=== PATIENT | female | born 1945 | race American Indian/Alaskan Native ===

== ENCOUNTER 2016-04-21 16:54 | Emergency (ER) | payer MEDICARE ==
--- NOTE | 2016-04-21 18:18 | Emergency Department Report ---
HPI - General Chief Complaint: Dizziness Time Seen by Provider: 04/21/16 17:58 - HPI HPI: Room 26 The patient is a 71-year-old female presenting with a chief complaint of weakness. The patient states when she awakened this morning at approximately 10 :00 she felt dizzy. The patient states she "wasn't feeling good." The patient is unable to describe exactly how she was feeling well and that she did not feel well. Patient denied chest pain, shortness of breath, diarrhea, abdominal pain or palpitations at any time. At 15:00 the patient decided to take a shower see if she would feel better and after she got out she felt weak all over and felt as though she was going to pass out but never lost consciousness. Patient does admit to slight headache and some nausea but denied vomiting. ED Past Medical Hx - Past Medical History Hx Hypertension: Yes Hx CVA: Yes (1997 no residual) Hx Diabetes: Yes Hx GERD: Yes Hx Renal Disease: Yes (CKD - no dialysis) Hx Arthritis: Yes Additional medical history: high cholesterol - Surgical History Hx Coronary Stent: Yes () Hx Cholecystectomy: Yes Additional Surgical History: ovary removed - Family History Family history: no significant - Social History Smoking Status: Former Smoker Substance Use Type: None - Medications Home Medications: Home Medications Medication Instructions Recorded Confirmed Last Taken Type Aspirin [Aspirin BABY CHEW TAB] 1 tab PO DAILY 01/09/13 12/22/13 09/23/13 History Clopidogrel Bisulfate [Plavix] 75 mg PO DAILY 01/09/13 12/22/13 12/14/13 History Enalapril Maleate [Vasotec] 20 mg PO DAILY 01/09/13 12/22/13 12/21/13 History Hydrochlorothiazide [HCTZ] 25 mg PO DAILY 01/09/13 12/22/13 12/21/13 History Insulin Aspart Prot/Aspart 40 units SC DAILY 01/09/13 12/22/13 12/21/13 History [NovoLOG Mix 70/30 VIAL] NIFEdipine [NIFEdipine ER] 90 mg PO QDAY 01/09/13 12/22/13 12/21/13 History Pantoprazole [Protonix TAB] 40 mg PO QDAY 01/09/13 12/22/13 12/21/13 History Insulin Aspart Prot/Aspart 20 units SC QHS 12/21/13 12/22/13 12/21/13 History [NovoLOG Mix 70/30 VIAL] Meclizine [Antivert] 25 mg PO TID PRN #20 tablet 04/21/16 Unknown Rx ED Review of Systems ROS: Stated complaint: DIZZINESS Other details as noted in HPI Comment: All other systems reviewed and negative Constitutional: weakness Eyes: denies: eye pain, eye discharge, vision change ENT: denies: ear pain, throat pain Respiratory: denies: cough, shortness of breath, wheezing Cardiovascular: denies: chest pain, palpitations Gastrointestinal: nausea. denies: vomiting Genitourinary: denies: urgency, dysuria, discharge Musculoskeletal: denies: back pain, joint swelling, arthralgia Skin: denies: rash, lesions Neurological: denies: headache Psychiatric: denies: anxiety, depression Hematological/Lymphatic: denies: easy bleeding, easy bruising Physical Exam - Physical Exam Vital Signs: Vital Signs 04/21/16 17:25 Temperature 98.7 F Pulse Rate 68 Respiratory 18 Rate Blood Pressure 152/73 O2 Sat by Pulse 98 Oximetry Physical Exam: GENERAL: The patient is well-developed well-nourished female lying on stretcher not appearing to be in acute distress. [] HEENT: Normocephalic. Atraumatic. Extraocular motions are intact. Patient has moist mucous membranes. No nystagmus NECK: Supple. Trachea midline CHEST/LUNGS: Clear to auscultation. There is no respiratory distress noted. HEART/CARDIOVASCULAR: Regular. There is no tachycardia. There is no gallop rub or murmur. ABDOMEN: Abdomen is soft, nontender. Patient has normal bowel sounds. There is no abdominal distention. SKIN: There is no rash. There is no edema. There is no diaphoresis. NEURO: The patient is awake, alert, and oriented. The patient is cooperative. The patient has no focal neurologic deficits. The patient has normal speech. Cranial nerves II through XII grossly intact, no drift MUSCULOSKELETAL: There is no evidence of acute injury. ED Course Vital Signs 04/21/16 17:25 Temperature 98.7 F Pulse Rate 68 Respiratory 18 Rate Blood Pressure 152/73 O2 Sat by Pulse 98 Oximetry - Reevaluation(s) Reevaluation #1: 04/21/16 19:43 She states she remains asymptomatic. Patient offered admission to the hospital for observation but she states she wants to go home. Patient given strong warnings to return to the ED should her symptoms come back. Patient and family verbalized understanding. Patient admonished to follow up with her primary physician ED Medical Decision Making - Lab Data Result diagrams: 04/21/16 18:13 04/21/16 18:13 Laboratory Tests 04/21/16 04/21/16 04/21/16 18:13 18:13 18:13 WBC 9.4 RBC 4.38 Hgb 12.3 Hct 38.3 MCV 87 MCH 28 MCHC 32 RDW 14.5 Plt Count 294 Lymph % (Auto) 16.4 Fisher % (Auto) 5.7 Eos % (Auto) 2.0 Baso % (Auto) 0.6 Lymph # 1.5 Fisher # 0.5 Eos # 0.2 Baso # 0.1 Seg Neutrophils % 75.3 H Seg Neutrophils # 7.1 Sodium 143 Potassium 3.6 Chloride 101.5 Carbon Dioxide 26 Anion Gap 19 BUN 21 H Creatinine 1.7 H Estimated GFR 36 BUN/Creatinine Ratio 12.35 Glucose 214 H Calcium 9.6 Total Creatine Kinase 44 CK-MB (CK-2) < 1.0 CK-MB (CK-2) Rel Index 2.2 Troponin T < 0.010 - EKG Data -: EKG Interpreted by [facility] EKG shows normal: sinus rhythm Rate: normal - EKG Data When compared to previous EKG there are: no significant change Interpretation: unchanged when compared t (11/29/2015), nonspecific ST-T wave won - Radiology Data Radiology results: report reviewed (CT head), image reviewed (CT head) CT head (read by radiologist)-no acute intracranial process noted. - Differential Diagnosis symptomatic anemia, electrolyte imbalance, acute renal failure, ICH, CVA Critical care attestation.: If time is entered above; I have spent that time in minutes in the direct care of this critically ill patient, excluding procedure time. ED Disposition Clinical Impression: Dizziness Disposition: DISCHARGED TO HOME OR SELFCARE Is pt being admited?: No Does the pt Need Aspirin: No Condition: Stable Instructions: Dizziness (ED) Additional Instructions: Return to the emergency department immediately should you develop worsening symptoms, fever, inability to tolerate food or liquid or any other concerns. Prescriptions: Meclizine [Antivert] 25 mg PO TID PRN #20 tablet PRN Reason: Vertigo Referrals: PRIMARY CARE, [Primary Care Provider] - [facility] Time of Disposition: 19:42
[2016-04-21 18:46] LABS: BUN/Creatinine Ratio 12.35; Blood Urea Nitrogen 21 mg/dL (7-17); Calcium 9.6 mg/dL (8.4-10.2); Carbon Dioxide 26 mmol/L (22-30); Chloride 101.5 mmol/L (98-107); Glucose 214 mg/dL (65-100); Potassium 3.6 mmol/L (3.6-5.0); Sodium 143 mmol/L (137-145)
[2016-04-21 18:47] LABS: Basophils % (Auto) 0.6 % (0.0-1.8); Hematocrit 38.3 % (30.3-42.9); Hemoglobin 12.3 gm/dl (10.1-14.3); Mean Corpuscular HGB Conc 32 % (30-34); Mean Corpuscular Hemoglobin 28 pg (28-32); Mean Corpuscular Volume 87 fl (79-97); Platelet Count 294 K/mm3 (140-440); Red Blood Count 4.38 M/mm3 (3.65-5.03); Red Cell Distribution Width 14.5 % (13.2-15.2); White Blood Count 9.4 K/mm3 (4.5-11.0)
--- NOTE | 2016-04-21 18:49 | Cat Scan Report ---
FINAL REPORT EXAM: CT HEAD/BRAIN WO CON HISTORY: dizziness TECHNIQUE: Standard unenhanced CT of the head at 5.0 millimeter axial increments PRIORS: Head is FINDINGS: The ventricular system is normal in size and configuration. There is no evidence for parenchymal volume loss. Low-density in the periventricular white matter bilaterally is consistent with small vessel ischemic changes. There is a small partially calcified ovoid density measuring 6.7 x 9.7 mm along the anterior cerebral falx (axial image 21). This is likely a small incidental meningioma. There is no evidence for other mass lesion, mass effect, midline shift, acute intracranial hemorrhage, or acute ischemia/ infarction. Visualized paranasal sinuses are clear. IMPRESSION: No acute intracranial process noted. Probable small meningioma along the anterior cerebral falx.
[2016-04-21 18:50] LABS: Creatine Kinase 44 units/L (30-135)
[2016-04-21 18:59] LABS: Anion Gap 19 mmol/L; Creatine Kinase MB < 1.0 ng/mL (0.0-4.0)
[2016-04-21 19:50] LABS: Bacteria,Urine 1+ /HPF (Negative); Bilirubin,Urine NEG (Negative); Blood,Urine NEG (Negative); Ketones,Urine NEG (Negative); Leukocyte Esterase,Urine NEG (Negative); Mucus,Urine FEW /HPF; Nitrite,Urine NEG (Negative); Urobilinogen,Urine < 2.0 mg/dL (<2.0)
[2016-04-21 19:51] LABS: Protein,Urine >500 mg/dL (Negative)
[2016-04-21 19:55] VITALS: BP 138/72
== END 2016-04-21 19:55 | disposition home or self-care (01) ==
LOC: ED 16:54
DX: R42 Dizziness and giddiness (principal); I63.9 Cerebral infarction, unspecified; E11.9 Type 2 diabetes mellitus without complications; K21.9 Gastro-esophageal reflux disease without esophagitis; I12.9 Hypertensive chronic kidney disease with stage 1 through stage 4 chronic kidney disease, or unspecified chronic kidney disease; N18.9 Chronic kidney disease, unspecified; M19.90 Unspecified osteoarthritis, unspecified site; E78.00 Pure hypercholesterolemia, unspecified; Z87.891 Personal history of nicotine dependence; Z79.82 Long term (current) use of aspirin; Z79.4 Long term (current) use of insulin
CPT/HCPCS: 36415; 70450; 80048; 81001; 82550; 82553; 84484; 85025; 93005; 93010

== ENCOUNTER 2016-09-02 17:46 | Emergency (ER) | payer MEDICARE ==
--- NOTE | 2016-09-02 18:53 | Emergency Department Report ---
Entered by JOSE ESCOTO, acting as scribe for ELAINE OLIVARES NP. Chief Complaint: Eye Problems Stated Complaint: SICK Time Seen by Provider: 09/02/16 18:29 - HPI History of Present Illness: 71 y/o female, PMHx of CVA, c/o pain in the left eye, aggravated by rubbing and light, constant since onset, moderate in severity. Associated itching of the left eye but no redness or drainage. Patient also c/o constant, diffuse right leg pain Patient has been recently seen at [facility] for treatment of CVA 3 weeks ago - ROS Review of Systems: + left eye pain +right leg pain - Exam Vital Signs: Vital Signs 09/02/16 18:29 Temperature 98.6 F Pulse Rate 86 Respiratory 19 Rate Blood Pressure 160/88 O2 Sat by Pulse 99 Oximetry Physical Exam: Constitutional: The patient is a well-developed, well-nourished, in no apparent distress. Patient is alert and oriented x3. Eyes: left eye photophobia MSE screening note: Focused history and physical exam performed. Due to findings the following was ordered: visual acuity ED Disposition for MSE Condition: Stable This documentation as recorded by the scribe,JOSE ESCOTO,accurately reflects the service I personally performed and the decisions made by ,ELAINE OLIVARES NP.
[2016-09-03 02:26] VITALS: BP 166/88
== END 2016-09-03 05:00 | disposition left against medical advice (07) ==
LOC: ED 17:46
DX: H57.12 Ocular pain, left eye (principal); L29.9 Pruritus, unspecified; Z53.21 Procedure and treatment not carried out due to patient leaving prior to being seen by health care provider
CPT/HCPCS: 99281